=== PATIENT | female | born 1945 | race Caucasian/White ===

== ENCOUNTER 2022-01-06 12:45 | Observation (INO) ==
[2022-01-06 13:33] LABS: Basophils # 0.1 10*3/uL (0.0-0.2); Basophils % 0.6 % (0.0-0.8); Eosinophils # 0.1 10*3/uL (0.0-0.87); Eosinophils % 0.9 % (0.00-10.9); Hematocrit 42.8 VOL% (35.7-47.0); Hemoglobin 14.1 GM/DL (12.0-16.0); Immature Granulocytes % 0.6 %; Immature Granulocytes Absolute 0.05 #; Lymphocytes # 1.7 10*3/uL (1.4-4.0); Lymphocytes % 18.6 % (21.3-54.2); Mean Corpuscular HGB Conc 32.9 GM/DL (32-36); Mean Corpuscular Volume 88.6 FL (87-102); Mean Platelet Volume 9.7 FL (9.6-12.0); Neutrophils % 74.3 % (38.7-73.9); Platelet Count 391 T/CUMM (130-400); Red Blood Count 4.83 MC/CUMM (3.8-5.5)
[2022-01-06 14:06] LABS: Albumin 3.6 G/DL (3.4-5.0); Bilirubin,Total 0.6 MG/DL (0.20-1.00); Calcium 9.7 MG/DL (8.5-10.1); Potassium 4.9 MMOL/L (3.5-5.1)
[2022-01-06] MEDS ORDERED: SODIUM CHLORIDE 0.9% 500 ML IV STA (15:20)
[2022-01-06] MEDS ORDERED: GLUCAGON 1 MG VIAL IM PRN (19:29)
[2022-01-06] MEDS ORDERED: LOPERAMIDE 2 MG CAPSULE PO PRN (19:29)
[2022-01-06] MEDS ORDERED: ACETAMINOPHEN 325 MG TABLET PO PRN (19:29)
[2022-01-06] MEDS ORDERED: ONDANSETRON 4 MG/2 ML VIAL IV PRN ×2 (19:29)
[2022-01-06] MEDS ORDERED: DEXTROSE 10% 250 ML BAG IV PRN (19:31)
[2022-01-06] MEDS: SODIUM CHLORIDE 0.9% 1,000 ML IV SCH (21:30)
[2022-01-06] MEDS: INSULIN LISPRO 100 UNIT/ML SUBCUT SCH (21:50)
[2022-01-06] MEDS: DOCUSATE SODIUM 100 MG CAPSULE PO SCH (22:22)
[2022-01-07 06:59] LABS: Calcium 8.2 MG/DL (8.5-10.1); Osmolality,Calculated 286.7 MOS/KG (273-304); Potassium 4.4 MMOL/L (3.5-5.1)
[2022-01-07] MEDS: INSULIN LISPRO 100 UNIT/ML SUBCUT SCH ×4 (08:00→22:52)
[2022-01-07 08:10] LABS: Eosinophils # 0.1 10*3/uL (0.0-0.87); Eosinophils % 1.7 % (0.00-10.9); Immature Granulocytes % 0.3 %; Immature Granulocytes Absolute 0.02 #; Red Cell Distribution Width 13.1 % (9.3-17.3)
[2022-01-07 08:12] LABS: Basophils % 0.6 % (0.0-0.8); Lymphocytes # 1.6 10*3/uL (1.4-4.0); Lymphocytes % 23.2 % (21.3-54.2); Mean Corpuscular HGB Conc 32.4 GM/DL (32-36); Mean Corpuscular Volume 90.9 FL (87-102); Mean Platelet Volume 9.7 FL (9.6-12.0); Monocytes % 8.5 % (1.7-12.7); Neutrophils % 65.7 % (38.7-73.9); White Blood Count 6.9 T/CUMM (4-12)
[2022-01-07 08:13] LABS: Platelet Count 309 T/CUMM (130-400); Red Blood Count 3.74 MC/CUMM (3.8-5.5)
[2022-01-07] MEDS: PANTOPRAZOLE 40 MG TABLET PO SCH (08:45)
[2022-01-07] MEDS: DOCUSATE SODIUM 100 MG CAPSULE PO SCH ×2 (08:46→22:36)
[2022-01-07] MEDS: SODIUM CHLORIDE 0.9% 1,000 ML IV SCH ×2 (10:36→22:52)
[2022-01-07] MEDS: ASPIRIN EC 81 MG TABLET PO SCH (10:36)
[2022-01-07] MEDS: ENOXAPARIN 40 MG/0.4 ML SYRINGE SUBCUT SCH (10:36)
[2022-01-07] MEDS ORDERED: ROSUVASTATIN 20 MG TABLET PO SCH (21:00)
[2022-01-08] MEDS: INSULIN LISPRO 100 UNIT/ML SUBCUT SCH ×2 (08:29→11:49)
[2022-01-08] MEDS ORDERED: METOPROLOL SUCCINATE XL 50 MG TABLET PO SCH (09:00)
[2022-01-08] MEDS ORDERED: CLOPIDOGREL 75 MG TABLET PO SCH (09:00)
[2022-01-08] MEDS: SODIUM CHLORIDE 0.9% 1,000 ML IV SCH (09:15)
[2022-01-08] MEDS: ASPIRIN EC 81 MG TABLET PO SCH (09:15)
[2022-01-08] MEDS: DOCUSATE SODIUM 100 MG CAPSULE PO SCH (09:15)
[2022-01-08] MEDS: PANTOPRAZOLE 40 MG TABLET PO SCH (09:16)
[2022-01-08 11:20] VITALS: BP 137/45
[2022-01-08] MEDS: ENOXAPARIN 40 MG/0.4 ML SYRINGE SUBCUT SCH (11:48)
== END 2022-01-08 12:45 | disposition home or self-care (01) ==
LOC: N.ED 12:45 → N.EDINP 12:45 → N.3E 01-07 15:00
PROVIDERS: ADMIT Family Medicine; ATTEND Family Medicine

== ENCOUNTER 2022-10-28 13:06 | Inpatient (IN) ==
[2022-10-28] MEDS ORDERED: ONDANSETRON 4 MG/2 ML VIAL IV STA (18:44)
[2022-10-28] MEDS ORDERED: SODIUM CHLORIDE 0.9% 500 ML IV STA (18:44)
[2022-10-28 19:51] LABS: Basophils # 0.1 10*3/uL (0.0-0.2); Basophils % 0.6 % (0.0-0.8); Eosinophils % 0.3 % (0.00-10.9); Hematocrit 35.9 VOL% (35.7-47.0); Hemoglobin 12.3 GM/DL (12.0-16.0); Immature Granulocytes % 0.4 %; Immature Granulocytes Absolute 0.04 #; Lymphocytes # 2.1 10*3/uL (1.4-4.0); Lymphocytes % 21.1 % (21.3-54.2); Mean Corpuscular HGB Conc 34.3 GM/DL (32-36); Mean Corpuscular Volume 84.5 FL (87-102); Mean Platelet Volume 9.9 FL (9.6-12.0); Monocytes # 1.1 10*3/uL (0.11-0.8); Neutrophils % 66.6 % (38.7-73.9); Platelet Count 343 T/CUMM (130-400); Red Blood Count 4.25 MC/CUMM (3.8-5.5); Red Cell Distribution Width 13.1 % (9.3-17.3)
[2022-10-28 20:05] LABS: Amylase 57 U/L (25-115)
[2022-10-28 20:10] LABS: Albumin 3.5 G/DL (3.4-5.0); Bilirubin,Total 0.9 MG/DL (0.20-1.00); Calcium 10.2 MG/DL (8.5-10.1); Osmolality,Calculated 281.5 MOS/KG (273-304); Potassium 3.5 MMOL/L (3.5-5.1); Total Protein 6.7 G/DL (6.4-8.2)
[2022-10-28] MEDS ORDERED: MAGNESIUM SULF RIDER 2 GM/50 ML PREMIX IV STA (20:32)
[2022-10-28] MEDS ORDERED: metroNIDAZOLE INJ 500 MG/100 ML PREMIX IV STA (20:44)
[2022-10-28] MEDS ORDERED: CIPROFLOXACIN INJ 400 MG/200 ML PREMIX IV STA (20:44)
[2022-10-28 21:06] LABS: Mucus,Urine Occasional /LPF (Occasional); Squamous Epithelial Cell,Urine Occasional /HPF (0-10)
[2022-10-28 21:07] LABS: Urine Appearance Clear (Clear); Urine Color Yellow (Yellow); Urine pH 8.5 (4.5-8.0)
[2022-10-28 21:08] LABS: Bilirubin,Urine Small mg/dL (Negative); Blood, Urine Negative (Negative); Glucose,Urine (UA) Negative (Negative); Ketones,Urine 40 mg/dL (Negative); Nitrite,Urine Negative (Negative); Protein,Urine Negative (Negative); Urine Specific Gravity 1.015 (1.001-1.035); Urine Urobilinogen 0.2 eU/dL (<2.0)
[2022-10-28] MEDS ORDERED: GLUCAGON 1 MG VIAL IM PRN (21:33)
[2022-10-28] MEDS ORDERED: MORPHINE 2 MG/1 ML SYRINGE IV PRN (21:33)
[2022-10-28] MEDS ORDERED: ACETAMINOPHEN 325 MG TABLET PO PRN (21:33)
[2022-10-28] MEDS ORDERED: DEXTROSE 10% 250 ML BAG IV PRN (21:44)
[2022-10-28] MEDS: MAGNESIUM CHLORIDE 64 MG TABLET PO SCH (23:10)
[2022-10-28] MEDS: DOCUSATE SODIUM 100 MG CAPSULE PO SCH (23:10)
[2022-10-29] MEDS: INSULIN REGULAR 100 UNIT/ML SUBCUT SCH ×4 (00:40→19:21)
[2022-10-29 05:03] LABS: Basophils # 0.1 10*3/uL (0.0-0.2); Basophils % 0.8 % (0.0-0.8); Eosinophils # 0.2 10*3/uL (0.0-0.87); Eosinophils % 1.7 % (0.00-10.9); Hematocrit 32.8 VOL% (35.7-47.0); Immature Granulocytes % 0.4 %; Immature Granulocytes Absolute 0.04 #; Lymphocytes # 1.6 10*3/uL (1.4-4.0); Mean Corpuscular HGB Conc 33.5 GM/DL (32-36); Mean Corpuscular Volume 86.5 FL (87-102); Mean Platelet Volume 9.9 FL (9.6-12.0); Monocytes # 0.9 10*3/uL (0.11-0.8); Monocytes % 10.1 % (1.7-12.7); Platelet Count 296 T/CUMM (130-400); Red Blood Count 3.79 MC/CUMM (3.8-5.5); Red Cell Distribution Width 13.2 % (9.3-17.3)
[2022-10-29 05:28] LABS: Albumin 2.9 G/DL (3.4-5.0); Calcium 9.3 MG/DL (8.5-10.1); Osmolality,Calculated 283.4 MOS/KG (273-304); Potassium 3.1 MMOL/L (3.5-5.1); Risk Ratio 1.61; Total Protein 6.2 G/DL (6.4-8.2); VLDL Cholesterol 17.4 MG/DL
[2022-10-29] MEDS: SODIUM CHLORIDE 0.9% 1,000 ML IV SCH ×3 (06:05→21:23)
[2022-10-29] MEDS: metroNIDAZOLE INJ 500 MG/100 ML PREMIX IV SCH ×3 (06:05→22:52)
[2022-10-29] MEDS: ONDANSETRON 4 MG/2 ML VIAL IV PRN ×2 (09:51→16:16)
[2022-10-29] MEDS: PANTOPRAZOLE 40 MG VIAL IV SCH (09:53)
[2022-10-29] MEDS: ENOXAPARIN 40 MG/0.4 ML SYRINGE SUBCUT SCH (09:53)
[2022-10-29] MEDS: CIPROFLOXACIN INJ 400 MG/200 ML PREMIX IV SCH ×2 (09:54→21:19)
[2022-10-29] MEDS: MAGNESIUM CHLORIDE 64 MG TABLET PO SCH ×2 (09:56→21:45)
[2022-10-29] MEDS: DOCUSATE SODIUM 100 MG CAPSULE PO SCH ×2 (09:56→22:53)
[2022-10-29] MEDS ORDERED: POTASSIUM CHLORIDE 20 MEQ TABLET PO ONE (14:16)
[2022-10-29] MEDS ORDERED: MAGNESIUM SULF RIDER 2 GM/50 ML PREMIX IV ONE (14:16)
[2022-10-29] MEDS ORDERED: METOPROLOL SUCCINATE XL 50 MG TABLET PO SCH (16:00)
[2022-10-29] MEDS: methylPREDNISolone SOD SUC 40 MG/1 ML VIAL IV SCH (16:09)
[2022-10-29] MEDS: ESCITALOPRAM 10 MG TABLET PO SCH (16:09)
[2022-10-29] MEDS: ROSUVASTATIN 20 MG TABLET PO SCH (21:44)
[2022-10-29] MEDS: busPIRone 5 MG TABLET PO SCH (21:45)
[2022-10-29] MEDS: GABAPENTIN 100 MG CAPSULE PO SCH (21:47)
[2022-10-30] MEDS: ONDANSETRON 4 MG/2 ML VIAL IV PRN ×3 (00:06→11:47)
[2022-10-30] MEDS: INSULIN REGULAR 100 UNIT/ML SUBCUT SCH ×4 (02:25→18:37)
[2022-10-30] MEDS: methylPREDNISolone SOD SUC 40 MG/1 ML VIAL IV SCH (05:30)
[2022-10-30] MEDS: metroNIDAZOLE INJ 500 MG/100 ML PREMIX IV SCH ×2 (06:25→14:26)
[2022-10-30] MEDS: SODIUM CHLORIDE 0.9% 1,000 ML IV SCH ×2 (08:45→14:51)
[2022-10-30] MEDS ORDERED: PROMETHAZINE 25 MG/1 ML VIAL IM PRN (09:08)
[2022-10-30] MEDS: CIPROFLOXACIN INJ 400 MG/200 ML PREMIX IV SCH ×2 (09:23→21:47)
[2022-10-30] MEDS: PANTOPRAZOLE 40 MG VIAL IV SCH (09:24)
[2022-10-30] MEDS: MAGNESIUM CHLORIDE 64 MG TABLET PO SCH ×2 (09:27→21:45)
[2022-10-30] MEDS: ENOXAPARIN 40 MG/0.4 ML SYRINGE SUBCUT SCH (09:27)
[2022-10-30] MEDS: DOCUSATE SODIUM 100 MG CAPSULE PO SCH ×2 (09:27→21:44)
[2022-10-30] MEDS: METOPROLOL SUCCINATE XL 25 MG TABLET PO SCH (09:27)
[2022-10-30] MEDS: ESCITALOPRAM 10 MG TABLET PO SCH (09:27)
[2022-10-30] MEDS: POTASSIUM CHLORIDE 20 MEQ TABLET PO SCH (09:27)
[2022-10-30] MEDS: busPIRone 5 MG TABLET PO SCH (09:28)
[2022-10-30] MEDS: ALPRAZolam 0.25 MG TABLET PO SCH ×3 (10:21→21:45)
[2022-10-30 11:27] LABS: Calcium 8.5 MG/DL (8.5-10.1); Osmolality,Calculated 283.7 MOS/KG (273-304); Potassium 3.8 MMOL/L (3.5-5.1)
[2022-10-30] MEDS: ROSUVASTATIN 20 MG TABLET PO SCH (21:44)
[2022-10-30] MEDS: busPIRone 10 MG TABLET PO SCH (21:44)
[2022-10-30] MEDS: GABAPENTIN 100 MG CAPSULE PO SCH (21:44)
[2022-10-31] MEDS: INSULIN REGULAR 100 UNIT/ML SUBCUT SCH ×4 (01:13→18:41)
[2022-10-31] MEDS: metroNIDAZOLE INJ 500 MG/100 ML PREMIX IV SCH ×4 (01:15→22:23)
[2022-10-31 05:51] LABS: Calcium 8.4 MG/DL (8.5-10.1); Osmolality,Calculated 285.1 MOS/KG (273-304); Potassium 3.6 MMOL/L (3.5-5.1)
[2022-10-31] MEDS: CIPROFLOXACIN INJ 400 MG/200 ML PREMIX IV SCH ×2 (09:08→20:46)
[2022-10-31] MEDS: PANTOPRAZOLE 40 MG VIAL IV SCH (09:17)
[2022-10-31] MEDS: ENOXAPARIN 40 MG/0.4 ML SYRINGE SUBCUT SCH (09:19)
[2022-10-31] MEDS: methylPREDNISolone SOD SUC 40 MG/1 ML VIAL IV SCH (09:20)
[2022-10-31] MEDS: MAGNESIUM CHLORIDE 64 MG TABLET PO SCH ×2 (09:20→20:46)
[2022-10-31] MEDS: ALPRAZolam 0.25 MG TABLET PO SCH ×4 (09:20→20:52)
[2022-10-31] MEDS: ESCITALOPRAM 10 MG TABLET PO SCH (09:20)
[2022-10-31] MEDS: POTASSIUM CHLORIDE 20 MEQ TABLET PO SCH (09:21)
[2022-10-31] MEDS: DOCUSATE SODIUM 100 MG CAPSULE PO SCH ×2 (09:21→20:46)
[2022-10-31] MEDS: METOPROLOL SUCCINATE XL 25 MG TABLET PO SCH (09:21)
[2022-10-31] MEDS: busPIRone 10 MG TABLET PO SCH ×2 (09:21→20:46)
[2022-10-31] MEDS: SODIUM CHLORIDE 0.9% 1,000 ML IV SCH ×2 (17:00→20:45)
[2022-10-31] MEDS: GABAPENTIN 100 MG CAPSULE PO SCH (20:46)
[2022-10-31] MEDS: ROSUVASTATIN 20 MG TABLET PO SCH (20:46)
[2022-11-01] MEDS: INSULIN REGULAR 100 UNIT/ML SUBCUT SCH ×5 (00:26→19:00)
[2022-11-01] MEDS: metroNIDAZOLE INJ 500 MG/100 ML PREMIX IV SCH ×3 (06:36→21:04)
[2022-11-01] MEDS: SODIUM CHLORIDE 0.9% 1,000 ML IV SCH ×3 (06:44→20:28)
[2022-11-01] MEDS: ESCITALOPRAM 10 MG TABLET PO SCH (10:17)
[2022-11-01] MEDS: DOCUSATE SODIUM 100 MG CAPSULE PO SCH ×2 (10:17→20:28)
[2022-11-01] MEDS: ENOXAPARIN 40 MG/0.4 ML SYRINGE SUBCUT SCH (10:17)
[2022-11-01] MEDS: POTASSIUM CHLORIDE 20 MEQ TABLET PO SCH (10:17)
[2022-11-01] MEDS: busPIRone 10 MG TABLET PO SCH ×2 (10:17→20:28)
[2022-11-01] MEDS: CIPROFLOXACIN INJ 400 MG/200 ML PREMIX IV SCH ×2 (10:17→20:28)
[2022-11-01] MEDS: methylPREDNISolone SOD SUC 40 MG/1 ML VIAL IV SCH (10:18)
[2022-11-01] MEDS: MAGNESIUM CHLORIDE 64 MG TABLET PO SCH ×2 (10:18→20:29)
[2022-11-01] MEDS: PANTOPRAZOLE 40 MG VIAL IV SCH (10:18)
[2022-11-01] MEDS: ALPRAZolam 0.25 MG TABLET PO SCH ×3 (10:19→20:29)
[2022-11-01] MEDS: METOPROLOL SUCCINATE XL 25 MG TABLET PO SCH (10:19)
[2022-11-01] MEDS: ROSUVASTATIN 20 MG TABLET PO SCH (20:28)
[2022-11-01] MEDS: GABAPENTIN 100 MG CAPSULE PO SCH (20:29)
[2022-11-02] MEDS: INSULIN REGULAR 100 UNIT/ML SUBCUT SCH ×4 (00:23→18:41)
[2022-11-02] MEDS: metroNIDAZOLE INJ 500 MG/100 ML PREMIX IV SCH ×3 (06:02→21:35)
[2022-11-02] MEDS: MAGNESIUM CHLORIDE 64 MG TABLET PO SCH ×2 (09:29→21:33)
[2022-11-02] MEDS: PANTOPRAZOLE 40 MG VIAL IV SCH (09:29)
[2022-11-02] MEDS: ENOXAPARIN 40 MG/0.4 ML SYRINGE SUBCUT SCH (09:29)
[2022-11-02] MEDS: POTASSIUM CHLORIDE 20 MEQ TABLET PO SCH (09:30)
[2022-11-02] MEDS: methylPREDNISolone SOD SUC 40 MG/1 ML VIAL IV SCH (09:30)
[2022-11-02] MEDS: METOPROLOL SUCCINATE XL 25 MG TABLET PO SCH (09:30)
[2022-11-02] MEDS: busPIRone 10 MG TABLET PO SCH ×2 (09:30→21:34)
[2022-11-02] MEDS: DOCUSATE SODIUM 100 MG CAPSULE PO SCH ×2 (09:30→21:34)
[2022-11-02] MEDS: CIPROFLOXACIN INJ 400 MG/200 ML PREMIX IV SCH ×2 (09:42→21:35)
[2022-11-02] MEDS: ALPRAZolam 0.25 MG TABLET PO SCH ×3 (09:42→21:32)
[2022-11-02] MEDS: ESCITALOPRAM 10 MG TABLET PO SCH (09:42)
[2022-11-02] MEDS: SODIUM CHLORIDE 0.9% 1,000 ML IV SCH (11:30)
[2022-11-02] MEDS: ROSUVASTATIN 20 MG TABLET PO SCH (21:33)
[2022-11-02] MEDS: GABAPENTIN 100 MG CAPSULE PO SCH (21:34)
[2022-11-03] MEDS: INSULIN REGULAR 100 UNIT/ML SUBCUT SCH ×4 (00:28→21:19)
[2022-11-03 05:34] LABS: Basophils # 0.1 10*3/uL (0.0-0.2); Basophils % 0.5 % (0.0-0.8); Eosinophils # 0.1 10*3/uL (0.0-0.87); Eosinophils % 1.4 % (0.00-10.9); Hematocrit 28.1 VOL% (35.7-47.0); Hemoglobin 9.2 GM/DL (12.0-16.0); Immature Granulocytes % 0.4 %; Immature Granulocytes Absolute 0.04 #; Lymphocytes # 1.8 10*3/uL (1.4-4.0); Lymphocytes % 18.2 % (21.3-54.2); Mean Corpuscular HGB Conc 32.7 GM/DL (32-36); Mean Corpuscular Volume 87.8 FL (87-102); Mean Platelet Volume 10.5 FL (9.6-12.0); Monocytes # 0.7 10*3/uL (0.11-0.8); Monocytes % 7.5 % (1.7-12.7); Platelet Count 244 T/CUMM (130-400); Red Cell Distribution Width 13.4 % (9.3-17.3); White Blood Count 9.7 T/CUMM (4-12)
[2022-11-03 05:52] LABS: Osmolality,Calculated 289.3 MOS/KG (273-304); Potassium 3.8 MMOL/L (3.5-5.1)
[2022-11-03] MEDS: metroNIDAZOLE INJ 500 MG/100 ML PREMIX IV SCH ×3 (06:00→23:36)
[2022-11-03] MEDS: SODIUM CHLORIDE 0.9% 1,000 ML IV SCH ×3 (06:00→23:36)
[2022-11-03] MEDS: CIPROFLOXACIN INJ 400 MG/200 ML PREMIX IV SCH ×2 (09:35→21:17)
[2022-11-03] MEDS: ESCITALOPRAM 10 MG TABLET PO SCH (09:39)
[2022-11-03] MEDS: POTASSIUM CHLORIDE 20 MEQ TABLET PO SCH (09:39)
[2022-11-03] MEDS: DOCUSATE SODIUM 100 MG CAPSULE PO SCH ×2 (09:39→21:18)
[2022-11-03] MEDS: METOPROLOL SUCCINATE XL 25 MG TABLET PO SCH (09:39)
[2022-11-03] MEDS: ENOXAPARIN 40 MG/0.4 ML SYRINGE SUBCUT SCH (09:39)
[2022-11-03] MEDS: ALPRAZolam 0.25 MG TABLET PO SCH ×3 (09:39→21:18)
[2022-11-03] MEDS: MAGNESIUM CHLORIDE 64 MG TABLET PO SCH ×2 (09:39→21:18)
[2022-11-03] MEDS: PANTOPRAZOLE 40 MG VIAL IV SCH (09:40)
[2022-11-03] MEDS: methylPREDNISolone SOD SUC 40 MG/1 ML VIAL IV SCH (09:40)
[2022-11-03] MEDS: busPIRone 10 MG TABLET PO SCH ×2 (09:40→21:18)
[2022-11-03] MEDS: ROSUVASTATIN 20 MG TABLET PO SCH (21:18)
[2022-11-03] MEDS: GABAPENTIN 100 MG CAPSULE PO SCH (21:19)
[2022-11-04] MEDS: INSULIN REGULAR 100 UNIT/ML SUBCUT SCH ×5 (00:16→23:52)
[2022-11-04] MEDS: metroNIDAZOLE INJ 500 MG/100 ML PREMIX IV SCH ×3 (06:15→23:20)
[2022-11-04] MEDS ORDERED: INSULIN GLARGINE 100 UNIT/ML SUBCUT SCH (09:00)
[2022-11-04] MEDS: ESCITALOPRAM 10 MG TABLET PO SCH (09:27)
[2022-11-04] MEDS: MAGNESIUM CHLORIDE 64 MG TABLET PO SCH ×2 (09:27→21:13)
[2022-11-04] MEDS: methylPREDNISolone SOD SUC 40 MG/1 ML VIAL IV SCH (09:27)
[2022-11-04] MEDS: busPIRone 10 MG TABLET PO SCH ×2 (09:27→21:13)
[2022-11-04] MEDS: ALPRAZolam 0.25 MG TABLET PO SCH ×3 (09:27→21:13)
[2022-11-04] MEDS: DOCUSATE SODIUM 100 MG CAPSULE PO SCH ×2 (09:27→21:14)
[2022-11-04] MEDS: POTASSIUM CHLORIDE 20 MEQ TABLET PO SCH (09:27)
[2022-11-04] MEDS: METOPROLOL SUCCINATE XL 25 MG TABLET PO SCH (09:27)
[2022-11-04] MEDS: ENOXAPARIN 40 MG/0.4 ML SYRINGE SUBCUT SCH (09:28)
[2022-11-04] MEDS: PANTOPRAZOLE 40 MG VIAL IV SCH (09:28)
[2022-11-04] MEDS: CIPROFLOXACIN INJ 400 MG/200 ML PREMIX IV SCH ×2 (09:29→21:10)
[2022-11-04] MEDS: ONDANSETRON 4 MG/2 ML VIAL IV PRN (11:48)
[2022-11-04] MEDS: GABAPENTIN 100 MG CAPSULE PO SCH (21:13)
[2022-11-04] MEDS: ROSUVASTATIN 20 MG TABLET PO SCH (21:13)
[2022-11-04] MEDS: SODIUM CHLORIDE 0.9% 1,000 ML IV SCH (21:58)
[2022-11-05] MEDS: INSULIN REGULAR 100 UNIT/ML SUBCUT SCH ×2 (06:04→13:16)
[2022-11-05] MEDS: metroNIDAZOLE INJ 500 MG/100 ML PREMIX IV SCH (06:04)
[2022-11-05] MEDS ORDERED: INSULIN GLARGINE 100 UNIT/ML SUBCUT SCH (09:00)
[2022-11-05] MEDS: POTASSIUM CHLORIDE 20 MEQ TABLET PO SCH (09:01)
[2022-11-05] MEDS: busPIRone 10 MG TABLET PO SCH (09:01)
[2022-11-05] MEDS: ESCITALOPRAM 10 MG TABLET PO SCH (09:01)
[2022-11-05] MEDS: MAGNESIUM CHLORIDE 64 MG TABLET PO SCH (09:01)
[2022-11-05] MEDS: ENOXAPARIN 40 MG/0.4 ML SYRINGE SUBCUT SCH (09:02)
[2022-11-05] MEDS: METOPROLOL SUCCINATE XL 25 MG TABLET PO SCH (09:02)
[2022-11-05] MEDS: DOCUSATE SODIUM 100 MG CAPSULE PO SCH (09:02)
[2022-11-05] MEDS: ALPRAZolam 0.25 MG TABLET PO SCH (09:02)
[2022-11-05] MEDS: PANTOPRAZOLE 40 MG VIAL IV SCH (09:03)
[2022-11-05] MEDS: methylPREDNISolone SOD SUC 40 MG/1 ML VIAL IV SCH (09:03)
[2022-11-05] MEDS: CIPROFLOXACIN INJ 400 MG/200 ML PREMIX IV SCH (09:04)
[2022-11-05 12:43] VITALS: BP 150/70
== END 2022-11-05 12:56 | disposition home health service (06) | DRG 392 ==
LOC: N.ED 13:06 → N.EDINP 20:44 → N.TELES 10-29 08:46
PROVIDERS: ADMIT Family Medicine; ATTEND Family Medicine